=== PATIENT | male | born 1995 | race Caucasian/White ===

== ENCOUNTER 2016-10-07 17:18 | Emergency (ER) | payer OTHER ==
--- NOTE | 2016-10-07 17:28 | EDPHY ---
H & P Time Seen by Provider: 10/07/16 17:23 Constitutional: Initial Vital Signs Temperature (C) 37 C 10/07/16 17:28 Heart Rate 58 L 10/07/16 17:28 Respiratory Rate 16 10/07/16 17:28 Blood Pressure 142/81 H 10/07/16 17:28 O2 Sat (%) 96 10/07/16 17:28 O2 Delivery Mode Room Air Allergies/Adverse Reactions: No Known Allergies Allergy (Verified 10/07/16 17:32) Home Medications: Medication Instructions Recorded NK [No Known Home Meds] 10/07/16 Medical Decision Making ED Course/Re-evaluation: CHIEF COMPLAINT: Stepped on nail HISTORY OF PRESENT ILLNESS: 30 minutes prior to arrival this patient stepped on a justine nail that went into his sneaker. The nail was in a board and he pulled his foot out of the nail was intact. Patient has no other complaints or injuries. He has no idea when his last tetanus shot was REVIEW OF SYSTEMS: A 10 point review of systems was performed and is negative with the exception of the elements mentioned in the history of present illness. PHYSICAL EXAM: HR, BP, O2 Sat, RR. Temp noted General Appearance: Alert, well hydrated, appropriate, and non-toxic appearing. Head: Atraumatic without scalp tenderness or obvious injury Eyes: Pupils equal, round, reactive to light and accommodation, EOMI, no trauma , no injection. Ears: Clear bilaterally, no perforation, normal landmarks Nose: Atraumatic, no rhinorrhea, clear. Throat: There is no erythema or exudates, no lesions, normal tonsils, mucus membranes moist. Neck: Supple, 2+ carotid upstroke, nontender, no lymphadenopathy. Respiratory: No retractions, no distress, no wheezes, and no accessory muscle use. Lungs are clear to auscultation bilaterally. Cardiovascular: Regular rate and rhythm, no murmurs, rubs, or gallops. Bilateral carotid, radial, dorsalis pedis, and posterior tibial pulses intact. Good capillary refill all extremities. Gastrointestinal: Abdomen is soft, nontender, non-distended, no masses, no rebound, no guarding, no peritoneal signs. Musculoskeletal: Normal active ROM of all extremities, atraumatic. Neurological: Alert, appropriate, and interactive. The patient has normal DTRs and non-focal cranial nerves, motor, sensory, and cerebellar exam. Skin: Small puncture wound on the dorsum of the right foot otherwise unremarkable. No rashes, good turgor, no nodules on palpation. Past medical history: None Past surgical history: None Family history: None Social history: Single, employed, does not abuse tobacco drugs or alcohol DIAGNOSTICS/PROCEDURES/CRITICAL CARE TIME: None indicated nail came out in total MEDICAL DECISION MAKING: This patient stepped on a justine nail through his sneaker. I spent a long time discussing with him the risks of infection and what to look for and what to return here. Specifically if there is any redness drainage or pus he will come back here immediately. If there is any streaking of redness up his ankle and foot he will come back here medially. He will soak his foot once or twice a day in lukewarm water. He will receive tetanus shot today and I will start him on doxycycline 100 mg twice daily. - Data Points Medications Given: Discontinued Medications Diphtheria/Tetanus/Acell Pertussis (Boostrix) 0.5 ml IM .ONCE ONE Stop: 10/07/16 17:34 Last Admin: 10/07/16 17:41 Dose: 0.5 ml Departure - Departure Disposition: Home, Routine, Self-Care Clinical Impression: Acute foreign body of plantar aspect of right foot Condition: Good Instructions: Puncture Wound (ED) Additional Instructions: Return here if any redness around the puncture site, any pus or drainage from the puncture site, or any red streaks up the foot or ankle or leg. Take all of your antibiotics. Soak her foot in warm water 2 to 3 times a day for 10 minutes. Referrals: [place],. [Primary Care Provider] - As per Instructions
[2016-10-07 17:32] VITALS: BP 142/81; PULSE 58; RESP 16; TEMP 98.6; O2SAT 96
[2016-10-07] MEDS ORDERED: TDAP ADULT 0.5 ML INJ (BOOSTRIX) IM ONE (17:33)
== END 2016-10-07 17:40 | disposition home or self-care (01) ==
LOC: CED 17:18
DX: S91.331A Puncture wound without foreign body, right foot, initial encounter (principal); W45.0XXA Nail entering through skin, initial encounter
CPT/HCPCS: G0463-PO